=== PATIENT | female | born 1955 | race Caucasian/White ===

== ENCOUNTER 2021-01-15 05:56 | Day surgery (SDC) | payer OTHER ==
[2021-01-08 11:49] VITALS: BMI 23.9
[2021-01-15] MEDS ORDERED: BUPIVACAINE HCL/PF 0.25% (2.5MG/ML) 10 ML VIAL ONE (07:17)
[2021-01-15] MEDS ORDERED: LIDOCAINE HCL 1%, 10 MG/ML (20ML VIAL) ONE (07:17)
[2021-01-15] MEDS ORDERED: MIDAZOLAM HCL 2 MG/2 ML SINGLE DOSE VIAL ONE (07:37)
[2021-01-15] MEDS ORDERED: SUCCINYLCHOLINE CHLORIDE 200 MG/10 ML SYRINGE ONE (07:41)
[2021-01-15] MEDS ORDERED: PROPOFOL 20 ML ONE (07:41)
[2021-01-15] MEDS ORDERED: oxyCODONE HCL 5 MG TABLET PO PRN (08:31)
[2021-01-15] MEDS ORDERED: PROMETHAZINE HCL 25 MG/1 ML VIAL IVPUSH PRN (08:31)
[2021-01-15] MEDS ORDERED: ONDANSETRON 4 MG/2 ML VIAL IVPUSH PRN (08:31)
[2021-01-15] MEDS ORDERED: LACTATED RINGERS SOLUTION 1,000 ML IV SCH (08:45)
[2021-01-15 09:09] VITALS: TEMP 97.8
[2021-01-15 09:47] VITALS: BP 131/74; PULSE 71
== END 2021-01-15 09:30 | disposition home or self-care (01) ==
LOC: FASU 05:56
PROVIDERS: ATTEND Orthopaedic Surgery
PROC: 01N50ZZ Release Median Nerve, Open Approach (ICD-10-PCS; principal; 2021-01-15 08:01)
DX: G56.01 Carpal tunnel syndrome, right upper limb (principal)
CPT/HCPCS: 82962; 94760

== ENCOUNTER 2021-11-12 04:31 | Day surgery (SDC) | payer OTHER ==
[2021-11-12 07:49] VITALS: BMI 25.0
[2021-11-12 09:16] VITALS: TEMP 97.3
[2021-11-12 09:58] VITALS: BP 120/63; PULSE 66; RESP 20
== END 2021-11-12 10:10 | disposition home or self-care (01) ==
LOC: JASU-ENDO 04:31
PROVIDERS: ATTEND Internal Medicine Gastroenterology
PROC: 0DB78ZX Excision of Stomach, Pylorus, Via Natural or Artificial Opening Endoscopic, Diagnostic (ICD-10-PCS; 2021-11-12)
PROC: 0DB98ZX Excision of Duodenum, Via Natural or Artificial Opening Endoscopic, Diagnostic (ICD-10-PCS; principal; 2021-11-12 09:00)
DX: K29.40 Chronic atrophic gastritis without bleeding (principal); K21.00 Gastro-esophageal reflux disease with esophagitis, without bleeding; C16.3 Malignant neoplasm of pyloric antrum; B96.81 Helicobacter pylori [H. pylori] as the cause of diseases classified elsewhere; I10 Essential (primary) hypertension; E11.9 Type 2 diabetes mellitus without complications; Z79.84 Long term (current) use of oral hypoglycemic drugs; Z80.0 Family history of malignant neoplasm of digestive organs
CPT/HCPCS: 82962; 88305-TC; 88341-TC; 88342-TC

== ENCOUNTER 2022-01-26 00:06 | Emergency (ER) | payer OTHER ==
[2022-01-26 00:21] VITALS: BP 134/79; PULSE 79; RESP 18; TEMP 98.6; BMI 24.4
[2022-01-26] MEDS ORDERED: ONDANSETRON *ODT* 4 MG TABLET ONE (00:24)
[2022-01-26] MEDS ORDERED: KETOROLAC TROMETHAMINE 60 MG/2 ML VIAL IM ONE (00:24)
[2022-01-26] MEDS ORDERED: KETOROLAC TROMETHAMINE 60 MG/2 ML VIAL ONE (00:24)
[2022-01-26] MEDS ORDERED: ONDANSETRON *ODT* 4 MG TABLET SL ONE (00:24)
== END 2022-01-26 00:34 | disposition home or self-care (01) ==
LOC: FER 00:06
PROC: 3E0233Z Introduction of Anti-inflammatory into Muscle, Percutaneous Approach (ICD-10-PCS; principal; 2022-01-26)
DX: M54.50 Low back pain, unspecified (principal)
CPT/HCPCS: 99284-25; Q0162

== ENCOUNTER 2023-06-30 04:29 | Day surgery (SDC) | payer OTHER ==
[2023-06-28 10:57] VITALS: BMI 24.4
[2023-06-30 09:19] VITALS: TEMP 97.8
[2023-06-30 09:48] VITALS: BP 108/61; PULSE 68; RESP 16
== END 2023-06-30 10:03 | disposition home or self-care (01) ==
LOC: JASU-ENDO 04:29
PROVIDERS: ATTEND Internal Medicine Gastroenterology
PROC: 0DJD8ZZ Inspection of Lower Intestinal Tract, Via Natural or Artificial Opening Endoscopic (ICD-10-PCS; principal; 2023-06-30 09:00)
DX: Z12.11 Encounter for screening for malignant neoplasm of colon (principal); K64.8 Other hemorrhoids; K59.00 Constipation, unspecified; I10 Essential (primary) hypertension; E11.9 Type 2 diabetes mellitus without complications; Z79.84 Long term (current) use of oral hypoglycemic drugs